=== PATIENT | female | born 2000 | race Caucasian/White ===

== ENCOUNTER 2023-05-01 22:36 | Emergency (ER) | payer OTHER, SELFPAY ==
[2023-05-01 22:41] VITALS: BP 129/92; PULSE 92; RESP 16; TEMP 36.7; O2SAT 100
--- NOTE | 2023-05-01 22:54 | CRLHL7_ITS ---
For Patients: As a result of the Cures Act, medical imaging exams and procedure reports are released immediately into your electronic medical record. You may view this report before your referring provider. If you have questions, please contact your health care provider. INDICATION: SOB. TECHNIQUE: Chest 2 views. COMPARISON: None. FINDINGS: Cardiovascular and mediastinum: Cardiomediastinal silhouette is within normal limits Lungs and pleural spaces: Lungs are clear. No sign of pleural effusion. No pneumothorax. Bones and soft tissues: No significant findings. IMPRESSION: No acute or significant findings. Dictated by Andrés Cifuentes MD @ 05/01/2023 11:49:06 PM (Electronically Signed)
[2023-05-01 23:10] LABS: Basophils Absolute Auto 0.02 K/uL (0.00-0.30); Basophils Percent Auto 0.3 % (0.0-3.0); Eosinophils Absolute Auto 0.08 K/uL (0.00-0.50); Hematocrit 41.4 % (33.0-51.0); Hemoglobin* 13.9 gm/dL (12.0-16.0); Immature Granulocytes Abs Auto 0.02 K/uL (0.00-0.30); Immature Granulocytes Pct Auto 0.3 %; Lymphocytes Absolute Auto 2.15 K/uL (0.90-2.90); Lymphocytes Percent Auto 27.7 % (20-44); Mean Corpuscular HGB Conc 34 gm/dL (32-36); Mean Corpuscular Hemoglobin 28 pg (26-34); Mean Corpuscular Volume 84 fL (80-100); Monocytes Percent Auto 6.1 % (0.0-11.0); Neutrophils Absolute Auto 5.02 K/uL (1.7-7.0); Neutrophils Percent Auto 64.6 % (42.0-72.0); Platelet Count* 324 K/uL (140-440); RDW Coefficient of Variation % 12.4 % (11.5-15.5); Red Blood Count 4.93 m/uL (4.00-5.20); White Blood Count* 7.76 K/uL (4.50-11.00)
--- NOTE | 2023-05-01 23:16 | ED_ITS ---
HPI - Chest Pain General Date Seen: 05/01/23 Chief Complaint: Chest Pain Stated Complaint: chest pain Time Seen by Provider: 05/01/23 22:54 Source: patient Mode of arrival: ambulatory Limitations: no limitations History of Present Illness HPI narrative: Patient is a 23-year-old female with no pertinent medical history presents emergency department for chest pain. She states the pain has been intermittent for the past day since she woke up. Pain is in the left precordial region. Pain has been intermittent. He describes this as sharp pain that is worse upon deep breaths. No history of blood clots. No history of cancer. She is not currently on control. They are concerned because her mother had heart attack at age 41. Patient denies fevers, chills, shortness of breath, weakness, numbness, diarrhea, constipation. Related Data Home Medications Medication Instructions Recorded Confirmed minocycline 100 mg capsule 200 mg PO BID 05/01/23 05/01/23 Allergies Allergy/AdvReac Type Severity Reaction Status Date / Time cephalexin Allergy Intermediate Verified 05/01/23 22:46 Review of Systems Status of ROS Reports: 10 or more systems reviewed and unremarkable except as noted in History and below [facility] Social History Smoking Status: Never smoker Do you use any of these nicotine containing products: None How often do you have a drink containing alcohol: never AUDIT-C Alcohol total score: 0 Non-prescribed substance use: denies use Exam Narrative Exam Narrative: Const: Well-nourished, Well-developed, in mild distress Eyes: PERRL, no conjunctival injection, and symmetrical lids HENT: Atraumatic external nose and ears. Moist mucous membranes. Neck: Symmetric, trachea midline, No thyromegaly. CVS: RRR, No murmurs or gallops. Peripheral pulses 2+ and equal in all extremities RESP: Unlabored respiratory effort. Clear to auscultation bilaterally. GI: Nontender/Nondistended, No rebound or guarding. MSK:Extremities w/o deformity, Normal Active ROM, chest is nontender to palpation Skin: Warm, Dry. No rashes or lesions. Neuro: Normal Muscle tone, No focal neurological deficits. Psych: Awake, Alert, & Oriented x3. Appropriate mood and affect. Const Vital Signs, click to edit/add: Vital Signs - 24 hr 05/01/23 22:41 05/01/23 23:32 Temperature 98.1 F Pulse Rate [Left Pulse Oximeter] 92 87 Respiratory Rate 16 16 Blood Pressure [Right Upper Arm] 129/92 H 136/90 H Pulse Oximetry 100 99 Oxygen Delivery Method Room Air Room Air Course Vital Signs Vital signs: Initial Vital Signs Temperature 98.1 F 05/01/23 22:41 Temperature Source Temporal Artery Scan 05/01/23 22:41 Pulse Rate 92 05/01/23 22:41 Pulse Rhythm Regular 05/01/23 22:41 Respiratory Rate 16 05/01/23 22:41 Blood Pressure 129/92 H 05/01/23 22:41 Blood Pressure Mean 104 05/01/23 22:41 Blood Pressure Position Sitting 05/01/23 22:41 Pulse Oximetry 100 05/01/23 22:41 Oxygen Delivery Method Room Air 05/01/23 22:41 Vital Signs Temperature 98.1 F 05/01/23 22:41 Pulse Rate 92 05/01/23 22:41 Respiratory Rate 16 05/01/23 22:41 Blood Pressure 129/92 H 05/01/23 22:41 Pulse Oximetry 100 05/01/23 22:41 Oxygen Delivery Method Room Air 05/01/23 22:41 Temperature 98.1 F 05/01/23 22:41 Pulse Rate 87 05/01/23 23:32 Respiratory Rate 16 05/01/23 23:32 Blood Pressure 136/90 H 05/01/23 23:32 Pulse Oximetry 99 05/01/23 23:32 Oxygen Delivery Method Room Air 05/01/23 23:32 MDM - Chest Pain MDM Narrative Medical decision making narrative: Patient is a 23-year-old female presenting emergency department for chest pain. Symptoms have been going on all day today. They are intermittent in nature and worse when she takes deep breath. She is PERC negative and PE is unlikely. We ordered chest x-ray to look for signs of pneumonia pneumothorax. Considering her description she could be suffering from precordial catch syndrome. Will order a BMP, CBC, troponin. EKG also ordered. Lab work returns showing no concerning abnormalities. Chest x-ray showed no concerning findings. I cannot definitively say was causing her chest pain based hot appear to be related to pneumonia, pneumothorax, ACS. At this time she continues to be stable and can be discharged home. She is agreeable to this plan. Lab Data Labs: Lab Results 05/01/23 Range/Units 23:00 WBC 7.76 (4.50-11.00) K/uL RBC 4.93 (4.00-5.20) m/uL Hgb 13.9 (12.0-16.0) gm/dL Hct 41.4 (33.0-51.0) % MCV 84 (80-100) fL MCH 28 (26-34) pg MCHC 34 (32-36) gm/dL RDW Coeff of Carmen 12.4 (11.5-15.5) % Plt Count 324 (140-440) K/uL Neut % (Auto) 64.6 (42.0-72.0) % Lymph % (Auto) 27.7 (20-44) % [place] % (Auto) 6.1 (0.0-11.0) % Eos % (Auto) 1.0 (0.0-7.0) % Baso % (Auto) 0.3 (0.0-3.0) % Neut # (Auto) 5.02 (1.7-7.0) K/uL Lymph # (Auto) 2.15 (0.90-2.90) K/uL [place] # (Auto) 0.50 (0.00-0.90) K/UL Eos # (Auto) 0.08 (0.00-0.50) K/uL Baso # (Auto) 0.02 (0.00-0.30) K/uL Abs Immat Gran (auto) 0.02 (0.00-0.30) K/uL Imm/Tot Granulo (auto) 0.3 % Sodium 141 (135-149) mmol/L Potassium 3.6 (3.6-5.1) mmol/L Chloride 105 (96-114) mmol/L Carbon Dioxide 24 (20-32) mmol/L Anion Gap 12 (7-15) mEq/L BUN 15 (5-24) mg/dL Creatinine 0.6 (0.5-1.5) mg/dL Estimated GFR 129 ml/min Glucose 119 H (60-115) mg/dL Calcium 9.1 (8.4-10.6) mg/dL Troponin I < 0.01 L (0.01-0.04) ng/mL Imaging Data Chest x-ray: Radiologist's impression: INDICATION: SOB. TECHNIQUE: Chest 2 views. COMPARISON: None. FINDINGS: Cardiovascular and mediastinum: Cardiomediastinal silhouette is within normal limits Lungs and pleural spaces: Lungs are clear. No sign of pleural effusion. No pneumothorax. Bones and soft tissues: No significant findings. IMPRESSION: No acute or significant findings. Dictated by Andrés Cifuentes MD @ 05/01/2023 11:49:06 PM ECG Data Attestation: I personally reviewed and interpreted this ECG as follows: Prior ECG tracings: not available for review Interpretation: Normal sinus rhythm, normal intervals, normal axis, no ST or T-wave ab normalities, rate of 79 beats per minute Discharge Plan Discharge Clinical Impression: Atypical chest pain Patient Disposition: Home, Self-Care Condition: Stable Instructions: Noncardiac Chest Pain (ED) Additional Instructions: If symptoms continue follow-up with the primary care provider. Return to the emergency department for any new or worsening symptoms. Prescriptions: No Action minocycline 100 mg capsule 200 mg PO BID Follow Up/Referrals: Provider,Not a Local [Primary Care Provider] - Stand Alone Forms: [employer] Info Instructions
[2023-05-01 23:19] LABS: Slide Review Reflex No
[2023-05-01 23:22] LABS: Chloride* 105 mmol/L (96-114); Potassium* 3.6 mmol/L (3.6-5.1); Sodium* 141 mmol/L (135-149)
[2023-05-01 23:25] LABS: Anion Gap 12 mEq/L (7-15); Blood Urea Nitrogen* 15 mg/dL (5-24); Carbon Dioxide* 24 mmol/L (20-32); Creatinine* 0.6 mg/dL (0.5-1.5); Estimated Glomerular Filt Rate 129 ml/min; Glucose* 119 mg/dL (60-115)
[2023-05-01 23:26] LABS: Calcium* 9.1 mg/dL (8.4-10.6)
[2023-05-01 23:32] VITALS: BP 136/90; PULSE 87; RESP 16; O2SAT 99
[2023-05-01 23:43] LABS: Troponin I* < 0.01 ng/mL (0.01-0.04)
== END 2023-05-02 01:03 | disposition home or self-care (01) ==
PROVIDERS: Emergency Provider Student in an Organized Health Care Education/Training Program
DX: R07.9 Chest pain, unspecified (principal)
CPT/HCPCS: 36415; 71046; 80048; 84484; 85025; 93005; 99283; 99284